=== PATIENT | female | born 1930 | race Caucasian/White ===

== ENCOUNTER 2017-11-16 03:49 | Emergency (ER) | payer OTHER ==
[~2017-11-16] VITALS: Ht 162.6 cm; Wt 68.0 kg
[2017-11-16 04:00] VITALS: Ht 162.6 cm; Wt 68.0 kg
[2017-11-16 06:22] LABS: BASOPHIL % 0.2 % (0-2); PLATELET COUNT 281 x10^3mcL (130-400)
[2017-11-16 06:28] LABS: CALCIUM 8.9 mg/dL (8.5-10.1); CARBON DIOXIDE 28.5 mmol/L (21-32); CHLORIDE SERUM 103 mmol/L (98-107); CREATININE SERUM 0.7 mg/dL (0.6-1.0); GLUCOSE SERUM 115 mg/dL (74-106); POTASSIUM SERUM 4.3 mmol/L (3.5-5.1); SODIUM SERUM 139 mmol/L (136-145)
[2017-11-16 06:33] LABS: ALKALINE PHOSPHATASE 114 U/L (46-116); ALT/SGPT 33 U/L (14-59); AST/SGOT 21 U/L (15-37); BILIRUBIN TOTAL 0.4 mg/dL (0.20-1.00); TOTAL PROTEIN, SERUM 7.3 g/dL (6.4-8.2)
[2017-11-16 06:34] LABS: ALBUMIN 3.3 g/dL (3.4-5.0)
[2017-11-16 08:55] VITALS: BP 138/70
== END 2017-11-16 08:55 | disposition short-term general hospital (02) ==
LOC: EDBD 03:49 → ED 03:49
PROVIDERS: Emergency Medicine
DX: S22.31XA Fracture of one rib, right side, initial encounter for closed fracture (principal); S20.211A Contusion of right front wall of thorax, initial encounter; I10 Essential (primary) hypertension; M81.0 Age-related osteoporosis without current pathological fracture; G89.29 Other chronic pain; M54.2 Cervicalgia; Z86.79 Personal history of other diseases of the circulatory system; Z95.0 Presence of cardiac pacemaker; Z88.5 Allergy status to narcotic agent; W01.198A Fall on same level from slipping, tripping and stumbling with subsequent striking against other object, initial encounter; Y93.89 Activity, other specified; Y99.8 Other external cause status; Y92.89 Other specified places as the place of occurrence of the external cause
CPT/HCPCS: J1885

== ENCOUNTER 2019-01-02 15:50 | Inpatient (IN) | payer OTHER ==
[~2019-01-02] VITALS: Ht 157.5 cm; Wt 78.9 kg
[2019-01-02 17:22] LABS: BASOPHIL % 0.5 % (0-2); PLATELET COUNT 278 x10^3mcL (130-400)
[2019-01-02 17:23] LABS: RED CELL DISTRIBUTION WIDTH 15.5 % (11.5-14.5)
[2019-01-02] MEDS ORDERED: GOOD SENSE ASPI81 M3 PO (17:29)
[2019-01-02] MEDS ORDERED: CARVEDILOL6.25 M1 PO (17:29)
[2019-01-02] MEDS ORDERED: GABAPENTIN100 M2 PO (17:30)
[2019-01-02] MEDS ORDERED: CRANBERRY500 MG PO (17:30)
[2019-01-02] MEDS ORDERED: PEPCID20 MG (17:30)
[2019-01-02] MEDS ORDERED: MIRTAZAPINE15 M2 (17:30)
[2019-01-02] MEDS ORDERED: CLARITIN10 MG PO (17:30)
[2019-01-02] MEDS ORDERED: LEVOTHYROXIN0.025 M2 (17:30)
[2019-01-02 17:31] LABS: CALCIUM 8.7 mg/dL (8.5-10.1); CARBON DIOXIDE 31.8 mmol/L (21-32); CHLORIDE SERUM 103 mmol/L (98-107); CREATININE SERUM 1.1 mg/dL (0.6-1.0); GLUCOSE SERUM 112 mg/dL (74-106); POTASSIUM SERUM 4.6 mmol/L (3.5-5.1); SODIUM SERUM 141 mmol/L (136-145)
[2019-01-02] MEDS ORDERED: ONDANSETRON4 M3 PO (17:31)
[2019-01-02] MEDS ORDERED: ZOLOFT50 MG PO (17:31)
[2019-01-02] MEDS ORDERED: ROBAFEN100 MG/5 M (17:31)
[2019-01-02] MEDS ORDERED: TRAMADOL HCL50 MG PO (17:32)
[2019-01-02 17:36] LABS: ALBUMIN 3.5 g/dL (3.4-5.0); ALKALINE PHOSPHATASE 115 U/L (46-116); ALT/SGPT 23 U/L (14-59); AST/SGOT 19 U/L (15-37); BILIRUBIN TOTAL 0.28 mg/dL (0.20-1.00); TOTAL PROTEIN, SERUM 8.1 g/dL (6.4-8.2)
[2019-01-02 18:11] LABS: microscopic required? YES; urine erythrocyte NEGATIVE (NEGATIVE)
[2019-01-02 19:25] LABS: MAGNESIUM 2.1 mg/dL (1.8-2.4); PHOSPHOROUS 4.1 mg/dL (2.5-4.9)
[2019-01-02 19:26] LABS: CHOLESTEROL/HDL RATIO 4.1
[2019-01-02 19:32] LABS: T3 TOTAL 0.8 ng/mL
[2019-01-02 19:33] LABS: FREE T4 0.79 ng/dL (0.76-1.46); FREE THYROXINE INDEX 1.7 ug/dL (1.4-4.5); T4(THYROXINE) 5.2 ug/dL (4.7-13.3)
[2019-01-02 19:57] VITALS: BP 197/89
[2019-01-02 20:37] VITALS: BP 139/93
[2019-01-02 20:53] VITALS: BP 189/99
[2019-01-03 06:00] VITALS: BP 155/92
[2019-01-03 07:34] LABS: CARBON DIOXIDE 27.4 mmol/L (21-32); CHLORIDE SERUM 100 mmol/L (98-107); GLUCOSE SERUM 158 mg/dL (74-106); MAGNESIUM 2.1 mg/dL (1.8-2.4); PHOSPHOROUS 4.3 mg/dL (2.5-4.9); POTASSIUM SERUM 4.7 mmol/L (3.5-5.1); SODIUM SERUM 140 mmol/L (136-145)
[2019-01-03 07:52] LABS: BASOPHIL % 0.1 % (0-2); PLATELET COUNT 258 x10^3mcL (130-400); RED CELL DISTRIBUTION WIDTH 15.4 % (11.5-14.5)
[2019-01-03 09:00] VITALS: BP 110/68
[2019-01-03 13:30] VITALS: BP 137/72
[2019-01-03 17:30] VITALS: BP 125/80
[2019-01-03 20:38] VITALS: BP 122/59
[2019-01-04 05:42] VITALS: BP 151/75
[2019-01-04 06:29] LABS: PLATELET COUNT 280 x10^3mcL (130-400)
[2019-01-04 06:34] LABS: BASOPHIL % 0 % (0-2); RED CELL DISTRIBUTION WIDTH 15.7 % (11.5-14.5)
[2019-01-04 06:38] LABS: CALCIUM 8.5 mg/dL (8.5-10.1); CARBON DIOXIDE 30.7 mmol/L (21-32); CHLORIDE SERUM 102 mmol/L (98-107); CREATININE SERUM 0.9 mg/dL (0.6-1.0); GLUCOSE SERUM 141 mg/dL (74-106); MAGNESIUM 2.3 mg/dL (1.8-2.4); PHOSPHOROUS 3.7 mg/dL (2.5-4.9); POTASSIUM SERUM 4.4 mmol/L (3.5-5.1); SODIUM SERUM 139 mmol/L (136-145)
[2019-01-04 09:21] VITALS: BP 149/65
[2019-01-04 12:27] VITALS: BP 112/67
[2019-01-04 16:58] VITALS: BP 169/79
[2019-01-04 18:47] VITALS: BP 137/69
[2019-01-04 20:20] VITALS: BP 142/65
[2019-01-05] VITALS (7 sets, daily range): BP systolic 135–162; BP diastolic 57–87
[2019-01-05 07:13] LABS: PLATELET COUNT 292 x10^3mcL (130-400)
[2019-01-05 07:15] LABS: BASOPHIL % 0 % (0-2); RED CELL DISTRIBUTION WIDTH 15.6 % (11.5-14.5)
[2019-01-05 07:17] LABS: CALCIUM 8.6 mg/dL (8.5-10.1); CARBON DIOXIDE 29.1 mmol/L (21-32); CHLORIDE SERUM 103 mmol/L (98-107); CREATININE SERUM 0.9 mg/dL (0.6-1.0); GLUCOSE SERUM 123 mg/dL (74-106); MAGNESIUM 2.5 mg/dL (1.8-2.4); PHOSPHOROUS 3.8 mg/dL (2.5-4.9); POTASSIUM SERUM 4.2 mmol/L (3.5-5.1); SODIUM SERUM 138 mmol/L (136-145)
[2019-01-06 06:08] VITALS: BP 102/75
[2019-01-06 09:00] VITALS: BP 129/62
[2019-01-06] MEDS ORDERED: PREDNISONE20 MG PO (09:43)
[2019-01-06] MEDS ORDERED: LEVAQUIN750 MG PO (09:43)
[2019-01-06 10:36] VITALS: BP 129/62
[2019-01-06 11:57] VITALS: Ht 157.5 cm; Wt 78.9 kg
[2019-01-06 12:00] VITALS: BP 119/60
== END 2019-01-06 16:49 | DRG 291 ==
LOC: ED 15:50 → DU 18:27
PROVIDERS: Emergency Medicine; ADMIT Family Medicine
DX: I11.0 Hypertensive heart disease with heart failure (principal); J96.00 Acute respiratory failure, unspecified whether with hypoxia or hypercapnia; N17.0 Acute kidney failure with tubular necrosis; N39.0 Urinary tract infection, site not specified; J45.901 Unspecified asthma with (acute) exacerbation; I50.43 Acute on chronic combined systolic (congestive) and diastolic (congestive) heart failure; I42.9 Cardiomyopathy, unspecified; F32.9 Major depressive disorder, single episode, unspecified; R73.03 Prediabetes; M81.0 Age-related osteoporosis without current pathological fracture; E03.9 Hypothyroidism, unspecified; J30.2 Other seasonal allergic rhinitis; G47.00 Insomnia, unspecified; Z95.0 Presence of cardiac pacemaker; Z79.82 Long term (current) use of aspirin; Z68.24 Body mass index [BMI] 24.0-24.9, adult
CPT/HCPCS: 36600; 83880; 84439; J0360; J2920; J2930; J7613; J7620; J7644; Q0092